=== PATIENT | female | born 1990 | race American Indian/Alaskan Native ===

== ENCOUNTER 2016-12-20 20:09 | Emergency (ER) | payer OTHER ==
[2016-12-20 22:32] LABS: BUN/Creatinine Ratio 13.75; Blood Urea Nitrogen 11 mg/dL (7-17); Carbon Dioxide 24 mmol/L (22-30); Glucose 100 mg/dL (65-100)
[2016-12-20 22:33] LABS: Anion Gap 18 mmol/L; Chloride 98.6 mmol/L (98-107); Sodium 137 mmol/L (137-145)
[2016-12-20 23:13] LABS: Basophils % (Auto) 0.4 % (0.0-1.8); Eosinophils % (Auto) 0.3 % (0.0-4.3); Hematocrit 37.3 % (30.3-42.9); Mean Corpuscular HGB Conc 32 % (30-34); Mean Corpuscular Hemoglobin 27 pg (28-32); Mean Corpuscular Volume 84 fl (79-97); Platelet Count 229 K/mm3 (140-440); Red Blood Count 4.45 M/mm3 (3.65-5.03); White Blood Count 12.7 K/mm3 (4.5-11.0)
[2016-12-21 01:55] LABS: Bacteria,Urine 1+ /HPF (Negative); Bilirubin,Urine SM (Negative); Blood,Urine NEG (Negative); Ketones,Urine TR mg/dL (Negative); Leukocyte Esterase,Urine NEG (Negative); Mucus,Urine 2+ /HPF; Nitrite,Urine NEG (Negative)
--- NOTE | 2016-12-21 02:54 | Emergency Department Report ---
- General Chief Complaint: Upper Respiratory Infection Stated Complaint: DIZZINESS Source: patient, family Mode of arrival: Ambulatory Limitations: No Limitations - History of Present Illness Initial Comments: 26-year-old female comes in for complaint of sore throat headache nausea decreased appetite and dizziness sweats and chills that started about 2:00 on Monday. 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 MD Complaint: sore throat - Related Data Previous Rx's Medication Instructions Recorded Last Taken Type Ibuprofen [Motrin 600 MG tab] 600 mg PO Q8H PRN #30 tablet 12/21/16 Unknown Rx Allergies Allergy/AdvReac Type Severity Reaction Status Date / Time No Known Allergies Allergy Verified 12/20/16 21:12 ED Review of Systems ROS: Stated complaint: DIZZINESS Other details as noted in HPI Constitutional: chills ENT: throat pain Gastrointestinal: nausea Neurological: headache ED Past Medical Hx - Past Medical History Previous Medical History?: No - Surgical History Past Surgical History?: No - Social History Smoking Status: Current Every Day Smoker Substance Use Type: Alcohol - Medications Home Medications: Home Medications Medication Instructions Recorded Confirmed Last Taken Type Ibuprofen [Motrin 600 MG tab] 600 mg PO Q8H PRN #30 tablet 12/21/16 Unknown Rx ED Physical Exam - General Limitations: No Limitations General appearance: alert, in no apparent distress - Head Head exam: Present: atraumatic, normocephalic - Eye Eye exam: Present: normal appearance - ENT ENT exam: Present: normal exam, mucous membranes moist, TM's normal bilaterally - Neck Neck exam: Present: normal inspection - Respiratory Respiratory exam: Present: normal lung sounds bilaterally. Absent: respiratory distress - Cardiovascular Cardiovascular Exam: Present: regular rate, normal rhythm. Absent: systolic murmur, diastolic murmur, rubs, gallop - GI/Abdominal GI/Abdominal exam: Present: soft, normal bowel sounds. Absent: distended, tenderness ED Course Vital Signs 12/20/16 12/21/16 21:12 03:17 Temperature 98.5 F 100.2 F H Pulse Rate 77 64 Respiratory 18 16 Rate Blood Pressure 121/78 Blood Pressure 110/74 [Right] O2 Sat by Pulse 100 98 Oximetry - Reevaluation(s) Reevaluation #1: 12/21/16 03:03 Patient denies dizziness at this time. ED Medical Decision Making - Lab Data Result diagrams: 12/20/16 22:55 12/20/16 21:58 - Medical Decision Making Patient evaluated by this provider in fast track. CBC BMP influenza rapid strep all came back within normal limits. Discharge patient on ibuprofen encourage patient to drink plenty of fluids and gradually go into eating solid foods. Critical care attestation.: If time is entered above; I have spent that time in minutes in the direct care of this critically ill patient, excluding procedure time. ED Disposition Clinical Impression: URI, acute Disposition: DISCHARGED TO HOME OR SELFCARE Is pt being admited?: No Does the pt Need Aspirin: No Condition: Stable Instructions: Upper Respiratory Infection (ED) Additional Instructions: Very important for you to drink plenty of fluids he can take [id number] cold and flu medication. He can take the Motrin that I prescribed for you. This importantly to follow the primary care provider for not getting any better or he become worse. Prescriptions: Ibuprofen [Motrin 600 MG tab] 600 mg PO Q8H PRN #30 tablet PRN Reason: Pain Referrals: PRIMARY CARE, [Primary Care Provider] - 3-5 Days Forms: Work/School Release Form(ED)
[2016-12-21 03:18] VITALS: BP 110/74
== END 2016-12-21 03:18 | disposition home or self-care (01) ==
LOC: ED 20:09
DX: J06.9 Acute upper respiratory infection, unspecified (principal); F17.200 Nicotine dependence, unspecified, uncomplicated
CPT/HCPCS: 36415; 80048; 81001; 85025; 87116; 87400; 87430; 99283